=== PATIENT | female | born 1965 | race Caucasian/White ===

== ENCOUNTER 2017-08-08 06:03 | Day surgery (SDC) | payer OTHER ==
[2017-08-01 15:40] VITALS: BMI 46.0
[2017-08-08] MEDS ORDERED: LIDOCAINE HCL 1%, 10 MG/ML (20ML VIAL) ONE (07:16)
[2017-08-08] MEDS ORDERED: LIDOCAINE HCL 2% (20ML MULTI-DOSE VIAL) NR ONE (07:26)
[2017-08-08] MEDS ORDERED: PROPOFOL 20 ML ONE ×3 (07:56→08:21)
[2017-08-08] MEDS ORDERED: SUCCINYLCHOLINE CHLORIDE 200 MG/10 ML VIAL ONE (07:56)
[2017-08-08] MEDS ORDERED: MIDAZOLAM HCL 2 MG/2 ML SINGLE DOSE VIAL ONE (07:56)
[2017-08-08] MEDS ORDERED: LIDOCAINE HCL 2% (50ML VIAL) INF ONE (08:10)
[2017-08-08 09:11] VITALS: TEMP 97.8
[2017-08-08 09:44] VITALS: BP 148/93; PULSE 82
--- NOTE | 2017-08-08 09:45 | OP ---
DATE OF OPERATION: 08/08/2017 PREOPERATIVE DIAGNOSIS: Left long finger mass. POSTOPERATIVE DIAGNOSIS: Left long finger mass. OPERATIVE PROCEDURE: Left long finger mass excision. SURGEON: Hipolito Alfonso MD ANESTHESIA: Local with sedation. COMPLICATIONS: None. ESTIMATED BLOOD LOSS: Minimal. INDICATIONS: The patient is a 52-year-old female with the above findings, indicated for operative treatment. The risks, benefits, and alternatives were discussed with the patient at length, and proper informed consent was obtained. PROCEDURE: After proper identification of the patient and the correct operative site, the patient was brought to the operating room and placed on the operating table. Prominences were well padded. Sedation was given and local anesthesia was given. Left upper extremity was prepped and draped in the usual sterile fashion. A well-padded tourniquet was placed with a sterile prep. Esmarch bandage used to exsanguinate left upper extremity. Tourniquet was inflated to 250 mmHg. A longitudinal midaxial incision was made over the distal interphalangeal joint in line with the prior incision. Incision was taken sharply to the skin with blunt and sharp dissection through the subcutaneous tissues. 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 The mass was excised and whole. Several small nerve branches were entangled within the mass and also needed to be resected. No further mass was visualized within the DIP joint or flexor tendon sheath or extensor tendon sheath within the field, and wound was irrigated and repaired with 5-0 nylon sutures. Sterile dressings were applied. Patient was reversed from anesthesia and brought to the recovery room in stable condition. She tolerated the procedure well. HIPOLITO ALFONSO M.D. [id number]
--- NOTE | 2017-08-12 19:17 | PATH ---
Surgical Pathology Report Patient Name: RICARDA ORELLANA [facility]. Rec. #: [id number] /Age/Gender: 1965 (Age: 52) / F Account: [id number] Location: [facility] AMBUL[facility]ORY Taken: 08/08/2017 Received: 08/08/2017 Reported: 08/12/2017 Physicians: Hipolito Wellington M.D. 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 Electronically Signed Betty Robin M.D. Gross Description Received in formalin labeled "left long finger mass," is a 1.4 x 1.0 x 0.3 cm portion of nunez fibrous tissue. The specimen is submitted in toto in one cassette. /08/08/201708/08/2017
== END 2017-08-08 09:46 | disposition home or self-care (01) ==
LOC: FASU 06:03
PROVIDERS: ATTEND Orthopaedic Surgery Hand Surgery
PROC: 0KBD0ZZ Excision of Left Hand Muscle, Open Approach (ICD-10-PCS; principal; 2017-08-08 08:17)
DX: D48.1 Neoplasm of uncertain behavior of connective and other soft tissue (principal)
CPT/HCPCS: 88305-TC